=== PATIENT | male | born 1955 | race African-American/Black ===

== ENCOUNTER 2020-01-23 06:40 | Observation (INO) | payer BC, OTHER ==
[2020-01-18 16:17] LABS: BASOPHILS # (AUTO) 0.1 (0.0-0.1); BASOPHILS % 0.7 % (0.0-1.0); EOSINOPHILS # (AUTO) 0.5 (0.0-0.4); EOSINOPHILS % 4.2 % (0.0-6.0); HEMATOCRIT 42.4 % (38.2-49.6); HEMOGLOBIN 13.4 g/dL (14.0-18.0); LYMPHOCYTES % 26.4 % (18.0-39.1); MEAN CORPUSCULAR HEMOGLOBIN 29.4 pg (28-32); MEAN CORPUSCULAR HGB CONC 31.6 g/dL (31-35); MONOCYTES # (AUTO) 0.9 (0.2-0.8); MONOCYTES % 7.6 % (4.4-11.3); NEUTROPHILS # (AUTO) 6.8 (2.1-6.9); NEUTROPHILS % 60.8 % (38.7-80.0); PLATELET COUNT 298 x10e3/uL (140-360); RED BLOOD COUNT 4.56 x10e6/uL (4.3-5.7); RED CELL DISTRIBUTION WIDTH 12.7 % (11.7-14.4)
[~2020-01-23] VITALS: Ht 182.9 cm; Wt 136.1 kg
[~2020-01-23 06:40] MED LIST: AMLODIPINE BESYL5 MG PO; HYDROCHLOROTHIA25 MG PO; PRAVACHOL40 MG PO
[2020-01-23] MEDS ORDERED: DEXAMETHASONE SOD PHOS 10 MG/1 ML VIAL ONE (07:35)
[2020-01-23] MEDS ORDERED: GABAPENTIN 300 MG CAP ONE (07:35)
[2020-01-23] MEDS ORDERED: CELECOXIB 200 MG CAP ONE (07:35)
[2020-01-23] MEDS ORDERED: CEFAZOLIN SOD 1 GM/NS 50ML 100 ML IV ONE (07:36)
[2020-01-23] MEDS ORDERED: VANCOMYCIN HCL 1,000 MG ONE (07:49)
[2020-01-23] MEDS ORDERED: BACITRACIN 50,000 UNIT VIAL ONE (07:50)
[2020-01-23] MEDS ORDERED: TRANEXAMIC ACID 1,000 MG/10 ML ML ONE (07:50)
[2020-01-23] MEDS ORDERED: SODIUM CHLORIDE 0.9% 500ML 500 ML ONE (07:50)
[2020-01-23] MEDS ORDERED: ROPIVACAINE 246.25 MG, EPINEPHRINE HCL 1:1000 1ML 0.5 MG, CLONIDINE HCL 0.08 MG, KETORO... INJ ONE ×5 (08:00)
[2020-01-23] MEDS ORDERED: KETOROLAC TROMETHAMINE 30 MG/ML VIAL IV PRN (10:30)
[2020-01-23] MEDS ORDERED: ONDANSETRON HCL INJ 2MG/ML 2ML 2 MG/ML VIAL IV PRN (10:30)
[2020-01-23] MEDS ORDERED: ZOLPIDEM TARTRATE 5 MG TAB PO PRN (10:30)
[2020-01-23] MEDS ORDERED: DOCUSATE SODIUM 100 MG CAP PO PRN (10:30)
[2020-01-23] MEDS ORDERED: HYDROCODONE/APAP 5MG-325MG TAB PO PRN (10:30)
[2020-01-23] MEDS ORDERED: ACETAMINOPHEN 650 MG SUPP PR PRN (10:30)
[2020-01-23] MEDS ORDERED: DIPHENHYDRAMINE HCL INJ 50 MG/ML VIAL IV PRN (10:30)
[2020-01-23] MEDS ORDERED: HYDROMORPHONE 1MG/1ML INJ ONE ×2 (10:41→11:01)
--- NOTE | 2020-01-23 12:58 | NUR ---
PATIENT ARRIVED TO UNIT AT APPROXIMATELY 1245. AAOX3. ACYANOTIC. NO DISTRESS NOTED. IMMOBILIZER NOTED TO LEFT LOWER EXTREMITY. PATIENT DENIES PAIN. CALL LIGHT IN REACH. SIDE RAILS UP X2. BED LOW AND LOCKED.
[2020-01-23 13:00] VITALS: BP 139/69
--- NOTE | 2020-01-23 13:02 | Diagnostic Imaging Report ---
KNEE LEFT 1-2 VIEWS - 3 views HISTORY: Pain. COMPARISON: None available. IMPRESSION: Portable AP and lateral radiographs of the left knee are submitted for interpretation. The patient is status post left total knee replacement. The hardware appears intact. Alignment is anatomic. Postsurgical changes include air within the joint space and soft tissue swelling. Signed by: Hugo Walker MD on 01/23/2020 12:58 PM
--- NOTE | 2020-01-23 13:04 | Operative Report ---
DATE OF PROCEDURE: 01/23/2020 SURGEON: Gaetano Marrero MD PELLETIZER: Layo Walsh, certified PA. PREOPERATIVE DIAGNOSIS: Osteoarthritis, left knee. POSTOPERATIVE DIAGNOSIS: Osteoarthritis, left knee. PROCEDURE: Left total knee arthroplasty, * added complexity secondary to BMI greater than 41. INDICATIONS: The patient is a 65-year-old gentleman, who has end-stage arthritis in his left knee. He has failed conservative management and would like to proceed with a left total knee replacement. The risks and benefits of the procedure have been discussed. The added challenges to perform a surgery due to his body mass index have been explained. The added risks for perioperative complications due to his body mass has also been discussed. The patient states that he has made reasonable efforts to lose weight and has been unsuccessful. He accepts these increased risks and would like to proceed with the surgery. PROCEDURE IN DETAIL: The patient was brought to the operating room and placed under general anesthetic. He received a regional block, tranexamic acid, and prophylactic antibiotics in the holding area. His left lower extremity was prepped and draped in a sterile manner. Added time and personnel was necessary due to the patient's body mass index of 42. The extremity was exsanguinated and a proximal tourniquet was inflated to 350 mmHg. An anterior incision with a medial parapatellar arthrotomy was performed. Soft tissue releases were performed to bring the knee up into flexion with the patella everted. Meniscal remnants, marginal osteophytes, and the cruciate ligaments were removed. He was noted to have pronounced wear in the medial compartment down to polished subchondral bone. A Ophelia [employer] Person[employer] medial congruent knee system was used throughout the case. An extramedullary cutting guide was used to resect the proximal tibia. The tibial base plate was a size G. The central fin punch was drilled and impacted. Sclerotic bone on the medial plateau was drilled for added cement fixation. An intramedullary cutting guide was used to resect the distal femur in 5 degrees of valgus and rotation referencing off a combination of landmarks including Whitesides line, the epicondylar axis, and the posterior condyles. The femoral component was a size 10. Care was taken to make sure that there was no anterior notching. The anterior and posterior cuts were made and there was indeed no notching. There was a subchondral cyst on the medial femoral condyle. This was debrided and packed with autologous bone graft. Trial reductions were performed. The patient was demonstrating excessive medial laxity. The medial collateral ligament was noted to be insufficient. I elected to use an 11 mm medial congruent tibial insert. I also oversewed the medial collateral ligament with #1 Ethibond to tighten up the medial side. We also determined that we would use a hinged knee brace after the procedure. The stability after doing so, after augmenting the medial collateral ligament was quite acceptable in full extension and 90 degrees of flexion. The patella was resurfaced with a 32 mm x 9 mm patellar button. The thickness was checked before and after resurfacing and was right at 25 mm. Patellar tracking was noted to be concentric. The trial implants were removed. A 100 mL premixed pericapsular JARROD injection was placed into the surrounding soft tissue. The knee was thoroughly irrigated with a shower tip pulsatile lavage. All bone cuts had also been irrigated with a spray mixture of diluted polymyxin and vancomycin spray. This was done to minimize thermal necrosis. The components were cemented into place using a single mix of high viscosity Biomet cement. Care was taken to remove extravasated cement. The wound was further irrigated while the cement cured. The arthrotomy was then closed with interrupted #1 Ethibond. The knee was put through flexion and extension to ensure a secure closure. The medial stability was noted to remain and be much improved. The skin was closed with subcuticular Vicryl and omkar. A sterile Aquacel bandage and a hinged knee brace were placed. The patient was extubated and transported to the recovery room in stable condition. Blood loss was minimal and all needle and sponge counts were correct. Gaetano Marrero MD DR/ESTELA /[id number]
[2020-01-23 13:31] VITALS: BP 139/69
[2020-01-23] MEDS: SODIUM CHLORIDE 0.9% 1000ML 1,000 ML IV SCH ×2 (13:45→21:58)
--- NOTE | 2020-01-23 13:52 | NUR ---
PATIENT HAS SLEEP APNEA MACHINE AT BEDSIDE
--- NOTE | 2020-01-23 13:58 | NUR ---
DR BRADSHAW OFFICE PREARRANGED FOLLOWING DISCHARGE PLAN OF: HOME [address] , [place] [id number] HOME HEALTH WITH HOME CARE PROVIDERS CONFIRMED WITH [facility] [phone] DME 3 IN ONE COMMODE, CPM AND ROLLING WALKER WITH WHEELS. PROVIDED BY [facility] [phone]
[2020-01-23] MEDS: HYDROCODONE/APAP 7.5MG-325MG 1 EA TAB PO PRN ×2 (14:52→20:01)
--- NOTE | 2020-01-23 14:52 | NUR ---
AAOX3. ACYANOTIC. TOLERATING FOOD AND PO FLUIDS WELL. PHYSICAL THERAPY STAFF AT BEDSIDE CURRENTLY.
--- NOTE | 2020-01-23 15:38 | NUR ---
ASSUMED CARE. ARRIVED TO UNIT AT APPROXIMATELY 1522. AAOX3. ACYANOTIC. RESTING IN BED GRASPING ABDOMEN. NO DISTRESS NOTED. CALL LIGHT IN REACH. SIDE RAILS UP X2.
[2020-01-23 16:41] VITALS: BP 139/69
[2020-01-23] MEDS: ASPIRIN 325 MG TAB PO SCH (17:00)
[2020-01-23] MEDS: CEFAZOLIN SOD 1 GM/NS 50ML 50 ML IV SCH (17:00)
[2020-01-23] MEDS: CELECOXIB 200 MG CAP PO SCH (17:00)
--- NOTE | 2020-01-23 18:47 | NUR ---
WALKING ROUNDS PERFORMED, RECEIVED PT LAYING SEMI FOWLERS IN BED, AAOX3, RR EVEN AND NON-LABORED, ON ROOM AIR. NO S/SX OF DISTRESS NOTED. (L) LEG WRAPPED IN KIARRA WRAP WITH HINGED BRACE IN PLACE. LEFT PT LAYING SEMI FOWLERS IN BED, BED IN LOW LOCKED POSITION, SIDE RAILS UPX2, CALL LIGHT AND PHONE WITHIN REACH.
[2020-01-23 20:00] VITALS: BP 131/65
--- NOTE | 2020-01-23 20:00 | NUR ---
CLARIFIED WITH MEGHANN JAMES TO PLACE PT ON CPM WITH HINGED BRACE ON (L) LEG.
[2020-01-23 20:57] VITALS: BP 131/65
[2020-01-24] VITALS: BP 127/66
[2020-01-24] MEDS: CEFAZOLIN SOD 1 GM/NS 50ML 50 ML IV SCH ×2 (00:41→09:48)
[2020-01-24 04:00] VITALS: BP 129/71
[2020-01-24 05:01] LABS: HEMATOCRIT 38.2 % (38.2-49.6); HEMOGLOBIN 12.2 g/dL (14.0-18.0)
--- NOTE | 2020-01-24 05:08 | Consultation ---
DATE OF CONSULTATION: REASON FOR CONSULTATION: Postop medical management. HISTORY OF PRESENT ILLNESS: The patient is a 65-year-old gentleman, status post left knee arthroplasty. He is doing well postoperatively with minimal pain of the left knee. REVIEW OF SYSTEMS: He denies any chest pain, fever, chills, nausea, vomiting, headache, shortness of breath, or dizziness. PAST MEDICAL HISTORY: Significant for high blood pressure, diabetes. MEDICATIONS: See MAR. ALLERGIES: NONE. 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 He is . Nonsmoker, nondrinker. FAMILY HISTORY: Noncontributory. PHYSICAL EXAMINATION: VITAL SIGNS: Temperature 97.6, pulse 66, blood pressure 127/66, saturations 97% on room air. GENERAL: No apparent distress, lying in bed, wearing a CPAP. NECK: Supple. LUNGS: Clear to auscultation bilaterally. CARDIOVASCULAR: Regular rate and rhythm. ABDOMEN: Good bowel sounds. Soft, nontender. EXTREMITIES: No clubbing or cyanosis. NEUROLOGIC: Nonfocal. ASSESSMENT/PLAN: 1. Status post left knee arthroplasty with left knee pain. We will continue with postoperative care and physical therapy. 2. Anemia. Check a CBC. 3. Sleep apnea. Continue with his CPAP machine. 4. Diabetes. Continue to monitor sugars. 5. Hypertension. We will restart his blood pressure medicines at discharge. Please see hospital chart for full details. MD BOBBY Teixeira/ESTELA /[id number]
[2020-01-24 07:46] VITALS: BP 121/60
[2020-01-24] MEDS: ASPIRIN 325 MG TAB PO SCH (09:48)
[2020-01-24] MEDS: CELECOXIB 200 MG CAP PO SCH (09:48)
[2020-01-24] MEDS: HYDROCODONE/APAP 7.5MG-325MG 1 EA TAB PO PRN (09:58)
--- NOTE | 2020-01-24 10:02 | NUR ---
bedside shift report receiveid pt in stable condition, updated on poc voiced understanding, pritesh pain at this time, l ac 20g no ss of infiltration noted, cpm at 50, brace noted to l knee, no other co vocied call light in reach will continue to monitor
[2020-01-24] MEDS ORDERED: ACETAMINOPHEN 1000 MG/100 ML IV PRN (10:30)
== END 2020-01-24 12:20 | disposition home or self-care (01) ==
LOC: OR 06:40 → PACU V 10:25 → MED/SURG 13:07
PROVIDERS: ADMIT Specialist; ATTEND Specialist
DX: M19.011 Primary osteoarthritis, right shoulder (principal); E66.01 Morbid (severe) obesity due to excess calories; I10 Essential (primary) hypertension; Z68.41 Body mass index [BMI] 40.0-44.9, adult; E78.00 Pure hypercholesterolemia, unspecified; Z85.46 Personal history of malignant neoplasm of prostate; G47.33 Obstructive sleep apnea (adult) (pediatric); M17.12 Unilateral primary osteoarthritis, left knee; D64.9 Anemia, unspecified; E11.9 Type 2 diabetes mellitus without complications; Z11.59 Encounter for screening for other viral diseases
CPT/HCPCS: 27130; 36415 ×2; 73560; 85014; 85018; 85025; 86850; 86900; 86920; 97116; 97139; 97162; 97530 ×2; C1713; G0378 ×2; J0171; J0690 ×2; J1100; J1170; J1885; J2795; J3370; J7030; J7040; U0002